=== PATIENT | male | born 1975 | race Caucasian/White ===

== ENCOUNTER → 2020-10-24 | Outpatient (CLI) | payer BC ==
[2020-10-24 19:14] LABS: Basophils # (A) 0.05 X 10*3/uL (0.00-0.10); Basophils % (A) 0.8 %; Eosinophils # (A) 0.18 X 10*3/uL (0.04-0.35); HCT 45.5 % (39.6-50.0); HGB 15.9 g/dL (13.0-17.0); Lymphocytes # (A) 1.26 X 10*3/uL (0.90-5.00); Lymphocytes % (A) 20.9 %; MCH 33.2 pg (27.0-32.0); MCHC 34.9 g/dL (32.0-37.0); Mean Platelet Volume 10.5 fL (9.5-12.2); Monocytes # (A) 0.52 X 10*3/uL (0.20-1.00); Monocytes % (A) 8.6 %; Neutrophils # (A) 4.01 X 10*3/uL (1.80-7.70); Neutrophils % (A) 66.4 %; Platelet Count 185 X 10*3/uL (140-440); RBC 4.79 X 10*6/uL (4.40-5.60); RDW 11.9 % (11.5-14.5); WBC 6.04 X 10*3/uL (4.50-10.00)
[2020-10-24 21:03] LABS: African American GFR (CKD) 117.5 (60.0-200.0); Non-African American GFR(CKD) 101.4 (60.0-200.0)
== END | disposition home or self-care (01) ==
LOC: LABWHC1 14:36
PROVIDERS: ATTEND Dermatology MOHS-Micrographic Surgery
DX: L40.0 Psoriasis vulgaris (principal)
CPT/HCPCS: 36415; 82565; 84450; 84460; 85025; 86480

== ENCOUNTER → 2020-10-31 | Outpatient (CLI) | payer BC ==
--- NOTE | 2020-10-31 14:08 | XR ---
EXAMINATION TYPE: XR chest 2V DATE OF EXAM: 10/31/2020 COMPARISON: NONE HISTORY: False positive TB skin test TECHNIQUE: Frontal and lateral views of the chest are obtained. FINDINGS: Heart size is within normal limits. No focal consolidation, pneumothorax or pleural effusi on. Minimal linear atelectasis or scarring at the left suprahilar region. Cervical spine hardware. Os seous structures are unremarkable. IMPRESSION: 1. No acute pulmonary disease.
[2020-10-31 14:59] LABS: ALT 45 U/L (4-49); AST 51 U/L (17-59)
== END | disposition home or self-care (01) ==
LOC: RADXRMAIN 13:20
PROVIDERS: ATTEND Nurse Practitioner Family
DX: L40.0 Psoriasis vulgaris (principal)
CPT/HCPCS: 71046; 84450; 84460; 86480

== ENCOUNTER 2022-09-02 22:07 | Emergency (ER) | payer BC, OTHER ==
[2022-09-02 22:28] VITALS: PULSE 109; RESP 16; TEMP 98
--- NOTE | 2022-09-02 23:23 | ED ---
General Adult HPI - General Chief complaint: Alcohol Stated complaint: ETOH Time Seen by Provider: 09/02/22 22:08 Source: patient Mode of arrival: EMS Limitations: no limitations - History of Present Illness Initial comments: This is a 47-year-old male with no past medical history presents emergency department via EMS and police for EtOH intoxication. It was reported that the patient was found at a bar when his did come to pick, and was arrested for a DUI. At that time the patient reportedly stumbled according to police so they brought him into the emergency department for further evaluation. On arrival, the patient was able to answer all questions appropriately however he was intermittently argumentative. The patient however denied any acute pain or trauma. The patient was resting in bed without any distress. - Related Data Allergies Allergy/AdvReac Type Severity Reaction Status Date / Time ibuprofen Allergy Swelling Verified 09/02/22 22:20 Review of Systems ROS Statement: Those systems with pertinent positive or pertinent negative responses have been documented in the HPI. ROS Other: All systems not noted in ROS Statement are negative. Past Medical History History of Any Multi-Drug Resistant Organisms: None Reported Past Psychological History: No Psychological Hx Reported Past Alcohol Use History: Occasional Past Drug Use History: None Reported General Exam Limitations: no limitations General appearance: alert, in no apparent distress Head exam: Present: atraumatic, normocephalic, normal inspection Eye exam: Present: normal appearance, PERRL Pupils: Present: normal accommodation ENT exam: Present: normal exam, normal oropharynx, mucous membranes moist Neck exam: Present: normal inspection, full ROM Respiratory exam: Present: normal lung sounds bilaterally Cardiovascular Exam: Present: regular rate, normal rhythm, normal heart sounds GI/Abdominal exam: Present: soft, normal bowel sounds Extremities exam: Present: normal inspection, full ROM Back exam: Present: normal inspection, full ROM Neurological exam: Present: alert, oriented X3, CN II-XII intact Psychiatric exam: Present: normal affect, normal mood Skin exam: Present: warm, dry Course Vital Signs 09/02/22 22:21 Temperature 98 F Pulse Rate 109 H Respiratory 16 Rate O2 Sat by Pulse 97 Oximetry Medical Decision Making - Medical Decision Making Was pt. sent in by a medical professional or institution (, PA, [employer], urgent care, hospital, or retirement...) When possible be specific @ -No Did you speak to anyone other than the patient for history (EMS, parent, family, police, friend...)? What history was obtained from this source @ -Yes, EMS and police Did you review nursing and triage notes (agree or disagree)? Why? @ -I reviewed and agree with nursing and triage notes Were old charts reviewed (outside hosp., previous admission, EMS record, old EKG, old radiological studies, urgent care reports/EKG's, retirement records)? Report findings @ -No old charts were reviewed Differential Diagnosis (chest pain, altered mental status, abdominal pain women, abdominal pain men, vaginal bleeding, weakness, fever, dyspnea, syncope, headache, dizziness, GI bleed, back pain, seizure, CVA, palpatations, mental health)? @ -EtOH intoxication, polysubstance abuse, dehydration EKG interpreted by me (3pts min.). @ -None X-rays interpreted by me (1pt min.). @ -None done CT interpreted by me (1pt min.). @ -None done U/S interpreted by me (1pt. min.). @ -None done What testing was considered but not performed or refused? (CT, X-rays, U/S, labs)? Why? @ -Labs were considered however the patient refused all testing. What meds were considered but not given or refused? Why? @ -None Did you discuss the management of the patient with other professionals (professionals i.e. , PA, [employer], lab, RT, psych nurse, social media manager, skull splitter, teacher, mortgage loan officer originator, corrections caseworker)? Give summary @ -No Was smoking cessation discussed for >3mins.? @ -Yes Was critical care preformed (if so, how long)? @ -No Were there social determinants of health that impacted care today? How? (H omelessness, low income, unemployed, alcoholism, drug addiction, transportation, low edu. Level, literacy, decrease access to med. care, [facility], rehab)? @ -No Was there de-escalation of care discussed even if they declined (Discuss DNR or withdrawal of care, Hospice)? DNR status @ -No What co-morbidities impacted this encounter? (DM, HTN, Smoking, COPD, CAD, Cancer, CVA, ARF, Chemo, Hep., AIDS, mental health diagnosis, sleep apnea, morbid obesity)? @ -None Was patient admitted / discharged? Hospital course, mention meds given and route, prescriptions, significant lab abnormalities, going to OR and other pertinent info. @ -The patient was seen and evaluated in emergency department. Physical exam, the patient was resting in bed without any acute complaints. The patient was reportedly intoxicated from police however was able to answer all questions appropriately. The patient did start to argue with me at first however was able to be called down. The patient did not receive any laboratory workup as he did refuse all laboratory workup. The patient was not significantly intoxicated. The patient was not in police custody. The patient was able to in weight throughout the emergency department without any acute assistance or any imbalance. The patient was able to answer all questions appropriately and was clinically sober. The patient was discharged home in stable condition. Undiagnosed new problem with uncertain prognosis? @ -No Drug Therapy requiring intensive monitoring for toxicity (Heparin, Nitro, Insulin, Cardizem)? @ -No Were any procedures done? @ -No Diagnosis/symptom? @ -EtOH intoxication Acute, or Chronic, or Acute on Chronic? @ -Acute Uncomplicated (without systemic symptoms) or Complicated (systemic symptoms)? @ -Uncomplicated Side effects of treatment? @ -No Exacerbation, Progression, or Severe Exacerbation? @ -No Poses a threat to life or bodily function? How? (Chest pain, [place], [place], pneumonia, PE, COPD, DKA, ARF, appy, cholecystitis, CVA, Diverticulitis, Homicidal, Suicidal, threat to staff... and all critical care pts) @ -No Disposition Clinical Impression: Alcoholic intoxication Disposition: HOME SELF-CARE Condition: Stable Instructions (If sedation given, give patient instructions): Alcohol Intoxication (ED) Is patient prescribed a controlled substance at d/c from ED?: No Referrals: None,Stated [Primary Care Provider] - 1-2 days Time of Disposition: 23:15
== END 2022-09-02 23:28 | disposition home or self-care (01) ==
LOC: EC 22:07
DX: F10.129 Alcohol abuse with intoxication, unspecified (principal); Z88.6 Allergy status to analgesic agent
CPT/HCPCS: 99284

== ENCOUNTER → 2022-09-06 | Outpatient (CLI) | payer BC ==
--- NOTE | 2022-09-06 11:23 | CT ---
EXAMINATION TYPE: CT brain wo con CT DLP: 1108.4 mGycm, Automated exposure control for dose reduction was used. DATE OF EXAM: 09/06/2022 11:17 AM COMPARISON: None. CLINICAL INDICATION:Male, 47 years old with history of R26.89, fell hitting right side of face/head TECHNIQUE: Brain: Multiple axial CT images of the brain were obtained without IV contrast. Coronal and sagittal reformats reviewed. FINDINGS: Brain: Extra-axial spaces: No abnormal extra-axial fluid collections. Ventricular system: Within normal limits Cerebral parenchyma: No acute intraparenchymal hemorrhage or mass effect. The mcmillan-white junction is well differentiated. Cerebellum: Unremarkable. Mass effect: No evidence of midline shift. Intracranial vasculature: unremarkable Soft tissues: Normal. Calvarium/osseous structures: No depressed skull fracture. Paranasal sinuses and mastoid air cells: Clear Visualized orbits: Orbital contents are intact. IMPRESSION: No acute intracranial process.
== END | disposition home or self-care (01) ==
LOC: RADCTMAIN 10:56
PROVIDERS: ATTEND Family Medicine
DX: R26.89 Other abnormalities of gait and mobility (principal)
CPT/HCPCS: 70450

== ENCOUNTER → 2022-09-14 | Outpatient (CLI) | payer BC ==
[2022-09-14 19:36] LABS: Hepatitis A Antibody IgM Nonreactive (Nonreactive); Hepatitis B Core IgM Nonreactive (Nonreactive); Hepatitis B Surface Antigen Nonreactive (Nonreactive); Hepatitis C IgG Antibody Nonreactive (Nonreactive)
[2022-09-14 19:48] LABS: Albumin 4.6 g/dL (3.8-4.9); Albumin/Globulin Ratio 1.44 (1.60-3.17); Bilirubin, Conjugated 0.48 mg/dL (0.20-0.40); Bilirubin,Unconjugated 1.12 mg/dL (0.20-1.00); Globulin 3.2 g/dL (1.6-3.3); Total Bilirubin 1.6 mg/dL (0.30-1.20); Total Protein 7.8 g/dL (6.2-8.2)
== END | disposition home or self-care (01) ==
LOC: LABWHC1 11:44
PROVIDERS: ATTEND Family Medicine
DX: B17.9 Acute viral hepatitis, unspecified (principal); R26.89 Other abnormalities of gait and mobility; R20.2 Paresthesia of skin
CPT/HCPCS: 36415; 80074; 80076; 82140; 82607; 86618; 86780

== ENCOUNTER → 2022-10-09 | Outpatient (CLI) | payer BC ==
[2022-10-09 16:10] LABS: Protein, Total 7.2 g/dL (6.2-8.2)
[2022-10-09 16:22] LABS: African American GFR (CKD) 121.6 (60.0-200.0); Albumin 4.6 g/dL (3.8-4.9); Albumin/Globulin Ratio 1.48 (1.60-3.17); Anion Gap 11.7 mmol/L (10.00-18.00); BUN/Creat Ratio 8.75 Ratio (12.00-20.00); Calcium 9.2 mg/dL (8.7-10.3); Carbon Dioxide 27.3 mmol/L (20.0-27.5); Globulin 3.1 g/dL (1.6-3.3); Non-African American GFR(CKD) 104.9 (60.0-200.0); Potassium 4.1 mmol/L (3.5-5.5); Total Bilirubin 2.7 mg/dL (0.30-1.20); Total Protein 7.7 g/dL (6.2-8.2)
[2022-10-09 16:59] LABS: Basophils # (A) 0.02 X 10*3/uL (0.00-0.10); Basophils % (A) 0.4 %; Eosinophils # (A) 0.17 X 10*3/uL (0.04-0.35); Eosinophils % (A) 3.8 %; HCT 40.4 % (39.6-50.0); HGB 14.4 g/dL (13.0-17.0); Immature Grans, Automated 0.2 %; Immature Platelet Fraction 6.2 % (1.1-6.1); Lymphocytes # (A) 0.94 X 10*3/uL (0.90-5.00); Lymphocytes % (A) 20.8 %; MCH 34.2 pg (27.0-32.0); MCHC 35.6 g/dL (32.0-37.0); Monocytes # (A) 0.43 X 10*3/uL (0.20-1.00); Monocytes % (A) 9.5 %; NRBC Per 100 WBC 0 /100 WBCS (0.0-0.0); Neutrophils # (A) 2.94 X 10*3/uL (1.80-7.70); Neutrophils % (A) 65.3 %; Platelet Count 77 X 10*3/uL (140-440); RBC 4.21 X 10*6/uL (4.40-5.60); RBC Morphology NORMAL; RDW 12.5 % (11.5-14.5); WBC 4.51 X 10*3/uL (4.50-10.00)
[2022-10-10 18:03] LABS: Albumin 4.16 g/dL (3.80-4.90); Gamma Globulin 1.45 g/dL (0.70-1.50)
== END | disposition home or self-care (01) ==
LOC: LABWHC1 12:47
PROVIDERS: ATTEND Nurse Practitioner Family
DX: K70.10 Alcoholic hepatitis without ascites (principal)
CPT/HCPCS: 36415; 80053; 82140; 83516; 84165; 85025; 86038

== ENCOUNTER → 2022-10-09 | Outpatient (CLI) | payer BC ==
--- NOTE | 2022-10-10 09:44 | CA ---
Transthoracic Echo Report Name: Erik Art Age: 47 Gender: M : 1975 Exam Date: 10/09/2022 12:03 Exam Location: [place] [facility] Ht (in): 72 Wt (lb): 200 Ordering Physician: Isai Maradiaga DO Attending/Referring Phys: Director Physical Jass García RDCS Procedure CPT: Indications: R01.1 Cardiac Hx: HTN; Murmur Technical Quality: Fair Contrast 1: Total Dose (mL): Contrast 2: Total Dose (mL): MEASUREMENTS (Male / Female) Normal Values 2D ECHO LV Diastolic Diameter PLAX 4.5 cm 4.2 - 5.9 / 3.9 - 5.3 cm LV Systolic Diameter PLAX 3.3 cm LV Fractional Shortening PLAX 26.0 % IVS Diastolic Thickness 1.6 cm 0.6 - 1.0 / 0.6 - 0.9 cm IVS Systolic Thickness 2.0 cm LVPW Diastolic Thickness 1.3 cm 0.6 - 1.0 / 0.6 - 0.9 cm LVPW Systolic Thickness 1.7 cm LV Relative Wall Thickness 0.7 RV Internal Dim ED PLAX 3.0 cm LVOT Diameter 2.1 cm Aortic Root Diameter 3.9 cm LA Systolic Diameter LX 3.3 cm 3.0 - 4.0 / 2.7 - 3.8 cm LA Ao Ratio 0.9 LV Diastolic Volume MOD BP 138.9 cm??? 67 - 155 / 56 - 104 cm??? LV Systolic Volume MOD BP 63.5 cm??? 22 - 58 / 19 - 49 cm??? LV Ejection Fraction MOD BP 54.3 % >= 55 % LV Stroke Volume MOD BP 75.5 cm??? LV Diastolic Volume MOD 4C 175.2 cm??? LV Systolic Volume MOD 4C 65.4 cm??? LV Ejection Fraction MOD 4C 62.7 % LV Stroke Volume MOD 4C 109.8 cm??? LV Diastolic Length 4C 8.6 cm LV Systolic Length 4C 7.3 cm LV Diastolic Volume MOD 2C 104.2 cm??? LV Systolic Volume MOD 2C 61.5 cm??? LV Ejection Fraction MOD 2C 41.0 % LV Stroke Volume MOD 2C 42.7 cm??? LV Diastolic Length 2C 8.0 cm LV Systolic Length 2C 7.2 cm Ascending Aorta Diameter 3.9 cm M-MODE Aortic Root Diameter MM 3.9 cm LA Systolic Diameter MM 3.9 cm LA Ao Ratio MM 1.0 AV Cusp Separation MM 1.3 cm DOPPLER AV Peak Velocity 301.2 cm/s AV Peak Gradient 36.3 mmHg AV Mean Velocity 189.4 cm/s AV Mean Gradient 18.3 mmHg AV Velocity Time Integral 63.8 cm AI Peak Velocity 299.5 cm/s AI Peak Gradient 35.9 mmHg AI Deceleration [place] 93.5 cm/s??? AI Pressure Half Time 929.0 ms LVOT Peak Velocity 118.6 cm/s LVOT Peak Gradient 5.6 mmHg LVOT Mean Velocity 87.5 cm/s LVOT Mean Gradient 3.3 mmHg LVOT Velocity Time Integral 28.6 cm LVOT Stroke Volume 99.5 cm??? LVOT Stroke Volume Index 46.7 ml/m??? AV Area Cont Eq vti 1.6 cm??? AV Area Cont Eq pk 1.4 cm??? MV Peak Velocity 87.5 cm/s MV Peak Gradient 3.1 mmHg MV Mean Velocity 53.1 cm/s MV Mean Gradient 1.3 mmHg MV Velocity Time Integral 30.1 cm MV Deceleration [place] 467.7 cm/s??? MR Peak Velocity 410.1 cm/s MR Peak Gradient 67.3 mmHg Mitral E Point Velocity 96.7 cm/s Mitral A Point Velocity 76.3 cm/s Mitral E to A Ratio 1.3 MV Deceleration Time 206.7 ms MV E' Velocity 8.9 cm/s Mitral E to MV E' Ratio 10.8 TR Peak Velocity 133.6 cm/s TR Peak Gradient 7.1 mmHg Right Ventricular Systolic Press 12.1 mmHg PV Peak Velocity 110.3 cm/s PV Peak Gradient 4.9 mmHg FINDINGS Left Ventricle Left ventricular ejection fraction is estimated at 50-55 %. Mild concentric left ventricular hypertrophy. Normal systolic function. Right Ventricle Normal right ventricular size and function. Right Atrium Normal right atrial size. Left Atrium Normal left atrial size. Mitral Valve Mitral valve thickened. Moderate mitral regurgitation. Aortic Valve Bicuspid AV cusps ? diffuse thickening (sclerosis) of the aortic valve cusps without reduced excursion. Moderate aortic stenosis with a peak gradient of 36.3 mmHg and a mean gradient of 18.3 mmHg. [id number] aortic regurgitation. Tricuspid Valve Mild tricuspid regurgitation. Pulmonic Valve Structurally normal pulmonic valve. Pericardium Normal pericardium. No pericardial effusion. Aorta Moderate aortic dilatation at the level of the sinuses of valsalva (root). Moderate aortic dilatation at the level of the sinotubular junction. Severely dilated proximal ascending aorta (tube). CONCLUSIONS Normal LV systolic function Bicuspid aortic valve. Moderate aortic stenosis and mean gradient of about 20 mmHg. [id number] aortic insufficiency Moderate aortic dilatation at the level of sinus of Valsalva Previewed by: Dr. Jose Martinez MD (Electronically Signed) Final Date: 10 October 2022 09:43
== END | disposition home or self-care (01) ==
LOC: RADECHMAIN 11:37
PROVIDERS: ATTEND Family Medicine
DX: I35.0 Nonrheumatic aortic (valve) stenosis (principal); R01.1 Cardiac murmur, unspecified
CPT/HCPCS: 93306

== ENCOUNTER → 2022-12-03 | Outpatient (CLI) | payer BC ==
[2022-12-03 17:33] LABS: Basophils # (A) 0.06 X 10*3/uL (0.00-0.10); Basophils % (A) 1.2 %; Eosinophils # (A) 0.38 X 10*3/uL (0.04-0.35); Eosinophils % (A) 7.6 %; HCT 44.1 % (39.6-50.0); HGB 14.8 d/dL (12.0-15.0); Lymphocytes # (A) 1.52 X 10*3/uL (0.90-5.00); Lymphocytes % (A) 30.6 %; MCHC 33.6 d/dL (32.0-37.0); MCV 95.2 FL (80.0-97.0); Mean Platelet Volume 11.7 FL (9.5-12.2); Monocytes # (A) 0.39 X 10*3/uL (0.20-1.00); Monocytes % (A) 7.8 %; NRBC Per 100 WBC 0 X 10*3/uL (0.00-0.01); Neutrophils % (A) 52.4 %; Platelet Count 114 X 10*3/uL (140-440); RBC 4.63 X 10*6/uL (4.40-5.60); RDW 11.6 % (11.5-14.5); WBC 4.97 X 10*3/uL (4.50-10.00)
[2022-12-04 18:17] LABS: ALT 66 U/L (10-49); AST 46 U/L (14-35); Albumin 4.4 d/dL (3.8-4.9); Albumin/Globulin Ratio 1.57 Ratio (1.60-3.17); Alkaline Phosphatase 60 U/L (41-126); BUN/Creat Ratio 10.91 Ratio (12.00-20.00); Bilirubin, Conjugated <0.20 mg/dL (0.20-0.40); Bilirubin,Unconjugated >0.40 mg/dL (0.20-1.00); Calcium 9.6 mg/dL (8.7-10.3); Carbon Dioxide 24.7 mmol/L (21.6-31.8); Chloride 100 mmol/L (96-109); Globulin 2.8 d/dL (1.6-3.3); Glucose 104 mg/dL (70-110); Potassium 3.6 mmol/L (3.5-5.5); Sodium 142 mmol/L (135-145); Total Bilirubin 0.6 mg/dL (0.3-1.2); Total Protein 7.2 d/dL (6.2-8.2)
== END | disposition home or self-care (01) ==
LOC: LABWHC1 08:55
PROVIDERS: ATTEND Nurse Practitioner Family
DX: K74.60 Unspecified cirrhosis of liver (principal)
CPT/HCPCS: 36415; 80053; 82248; 85025

== ENCOUNTER → 2023-02-21 | Outpatient (CLI) | payer BC ==
--- NOTE | 2023-02-21 12:59 | US ---
EXAMINATION TYPE: US liver DATE OF EXAM: 02/21/2023 COMPARISON: NONE CLINICAL INDICATION: Male, 47 years old with history of K74.60 cirrhosis; Cirrhosis. TECHNIQUE: Multiple sonographic images of the right upper quadrant are obtained. FINDINGS: EXAM MEASUREMENTS: Liver Length: 16.5 cm Gallbladder Wall: 0.3 cm CBD: Obscured Right Kidney: 12.0 x 6.0 x 5.1 cm FAMILY PRACTICE DOCTOR NOTES: Limited due to overlying bowel gas Pancreas: Not well seen. Liver: Increased echogenicity. No focal lesion. Gallbladder: Multiple hyperechoic areas with posterior shadowing seen within the gallbladder, larg est measures 1.2 cm in largest dimension. The gallbladder is mildly hydropic up to 4.3 cm wide but wi thout any wall thickening or surrounding fluid. Evidence for sonographic Rendon's sign: No CBD: Obscured Right Kidney: No hydronephrosis or masses seen IMPRESSION: 1. Moderate hepatic steatosis. Correlate with LFTs, lipid profile, and patient risk factors. 2. Mildly hydropic gallbladder probably relating to fasting state. A few echogenic nodules along the wall of the gallbladder are present and could represent stones or gallbladder wall polyps, largest me asuring 1.2 cm. Six-month follow-up to reassess. 3. The bile duct is obscured and could not be assessed.
== END | disposition home or self-care (01) ==
LOC: RADUSWWP 06:48
PROVIDERS: ATTEND Internal Medicine Gastroenterology
DX: K74.60 Unspecified cirrhosis of liver (principal); K76.0 Fatty (change of) liver, not elsewhere classified; K82.8 Other specified diseases of gallbladder
CPT/HCPCS: 76705

== ENCOUNTER → 2023-02-25 | Outpatient (CLI) | payer BC ==
--- NOTE | 2023-02-28 11:27 | MR ---
EXAMINATION TYPE: MR brain and iac wo/w con DATE OF EXAM: 02/25/2023 5:49 PM CLINICAL INDICATION:Male, 47 years old with history of R94.121 ABNORMAL VESTIBULAR FUNCTION STUDY; PH H, Head injury 09-02-22, balance issues, dizziness COMPARISON: None TECHNIQUE: Multi planar, multi sequence imaging was performed through the brain. Specialized thin s equences were obtained through the internal auditory canals. Pre-and post gadolinium sequences were obtained. MR contrast: IV Contrast: 9 cc Gadavist FINDINGS: The mcmillan-white junctions, ventricular system, and cisterns appear unremarkable. Midline structures s how no abnormality. Diffusion-weighted imaging shows no evidence of restricted diffusion. The suscept ibility weighted images do not reveal any evidence for micro-hemorrhage. The bone marrow signal is within normal limits. Paranasal sinuses and mastoid air cells: Mild scattered paranasal sinus disease. Visualized orbits: Orbital contents are intact. After administration of gadolinium, no abnormal enhancement is seen. The internal auditory canal sequences demonstrate no significant irregularity. The 7th cranial nerve s, 8 cranial nerves, and cerebellar pontine angles appear unremarkable. After the administration laury olinium, no abnormal enhancement is seen within the internal auditory canals. Vascular loop: Right Type II: entering, but not extending >50% of the length of the IAC IMPRESSION: 1. No evidence of intracranial mass nor acute/subacute CVA. 2. No evidence of internal auditory canal abnormality. 3. Vascular loop: Right Type II: entering, but not extending >50% of the length of the IAC
== END | disposition home or self-care (01) ==
LOC: RADMRIMAIN 16:15
PROVIDERS: ATTEND Otolaryngology
DX: R94.121 Abnormal vestibular function study (principal)
CPT/HCPCS: 70553; A9585

== ENCOUNTER → 2023-03-05 | Outpatient (CLI) | payer BC ==
[2023-03-05 20:43] LABS: Basophils # (A) 0.05 X 10*3/uL (0.00-0.10); Basophils % (A) 0.6 %; Eosinophils % (A) 2.6 %; HGB 14.9 d/dL (13.0-17.0); Lymphocytes # (A) 2.46 X 10*3/uL (0.90-5.00); Lymphocytes % (A) 31.8 %; MCH 31.5 pg (27.0-32.0); MCHC 34.7 d/dL (32.0-37.0); MCV 90.9 FL (80.0-97.0); Mean Platelet Volume 11.1 FL (9.5-12.2); Monocytes # (A) 0.51 X 10*3/uL (0.20-1.00); Monocytes % (A) 6.6 %; NRBC Per 100 WBC 0 X 10*3/uL (0.00-0.01); Neutrophils % (A) 58.1 %; Platelet Count 130 X 10*3/uL (140-440); RBC 4.73 X 10*6/uL (4.40-5.60); RDW 12.8 % (11.5-14.5); WBC 7.74 X 10*3/uL (4.50-10.00)
[2023-03-05 20:50] LABS: ALT 33 U/L (10-49); AST 32 U/L (14-35); Albumin 4.7 d/dL (3.8-4.9); Albumin/Globulin Ratio 1.74 Ratio (1.60-3.17); Alkaline Phosphatase 59 U/L (41-126); Blood Urea Nitrogen 10.5 mg/dL (9.0-27.0); Calcium 10.3 mg/dL (8.7-10.3); Carbon Dioxide 28.4 mmol/L (21.6-31.8); Chloride 100 mmol/L (96-109); Globulin 2.7 d/dL (1.6-3.3); Glucose 94 mg/dL (70-110); Potassium 4.5 mmol/L (3.5-5.5); Sodium 139 mmol/L (135-145); Total Bilirubin 1.5 mg/dL (0.3-1.2); Total Protein 7.4 d/dL (6.2-8.2)
== END | disposition home or self-care (01) ==
LOC: LABWHC1 15:32
PROVIDERS: ATTEND Family Medicine
DX: K74.60 Unspecified cirrhosis of liver (principal)
CPT/HCPCS: 36415; 80053; 85025

== ENCOUNTER → 2023-04-08 | Outpatient (CLI) | payer BC | LOC: 3 N SLEEP 06:31 | PROVIDERS: ATTEND Internal Medicine | DX: G47.33 Obstructive sleep apnea (adult) (pediatric) (principal); Z88.6 Allergy status to analgesic agent | CPT/HCPCS: 95810 ==

== ENCOUNTER → 2023-09-06 | Outpatient (CLI) | payer BC ==
[2023-09-06 17:05] LABS: Basophils # (A) 0.03 X 10*3/uL (0.00-0.10); Basophils % (A) 0.6 %; Eosinophils # (A) 0.23 X 10*3/uL (0.04-0.35); Eosinophils % (A) 4.8 %; HCT 43.4 % (39.6-50.0); HGB 14.7 g/dL (13.0-17.0); Lymphocytes % (A) 29.2 %; MCH 31.4 pg (27.0-32.0); MCHC 33.9 g/dL (32.0-37.0); MCV 92.7 FL (80.0-97.0); Mean Platelet Volume 10.8 FL (9.5-12.2); Monocytes # (A) 0.23 X 10*3/uL (0.20-1.00); Monocytes % (A) 4.8 %; NRBC Per 100 WBC 0 X 10*3/uL (0.00-0.01); Neutrophils % (A) 60.4 %; Platelet Count 120 X 10*3/uL (140-440); RBC 4.68 X 10*6/uL (4.40-5.60); RDW 12.3 % (11.5-14.5)
[2023-09-06 17:31] LABS: ALT 27 U/L (10-49); AST 26 U/L (14-35); Albumin 4.4 g/dL (3.8-4.9); Albumin/Globulin Ratio 1.76 Ratio (1.60-3.17); Alkaline Phosphatase 63 U/L (41-126); BUN/Creat Ratio 6.55 Ratio (12.00-20.00); Blood Urea Nitrogen 7.2 mg/dL (9.0-27.0); Calcium 9.8 mg/dL (8.7-10.3); Carbon Dioxide 26.5 mmol/L (21.6-31.8); Chloride 106 mmol/L (96-109); Globulin 2.5 g/dL (1.6-3.3); Glucose 98 mg/dL (70-110); Potassium 4.6 mmol/L (3.5-5.5); Sodium 142 mmol/L (135-145); Total Bilirubin 1.5 mg/dL (0.3-1.2); Total Protein 6.9 g/dL (6.2-8.2)
== END | disposition home or self-care (01) ==
LOC: LABWHC1 10:41
PROVIDERS: ATTEND Internal Medicine Gastroenterology
DX: K74.60 Unspecified cirrhosis of liver (principal)
CPT/HCPCS: 36415; 80053; 82105; 85025

== ENCOUNTER → 2023-10-16 | Outpatient (CLI) | payer BC ==
--- NOTE | 2023-10-16 09:56 | US ---
EXAMINATION TYPE: US liver DATE OF EXAM: 10/16/2023 COMPARISON: NONE CLINICAL INDICATION: Male, 48 years old with history of K74.60 UNSPECIFIED CIRRHOSIS OF LIVER; known cirrhosis, no symptoms TECHNIQUE: Multiple sonographic images of the right upper quadrant are obtained. FINDINGS: EXAM MEASUREMENTS: Liver Length: 16.7 cm Gallbladder Wall: 0.2 cm CBD: 0.6 cm Right Kidney: 10.8 x 4.4 x 5.3 cm Pancreas: wnl Liver: difficult to penetrate , no suspicious observations. No dilated ducts or cystic structures. Gallbladder: multiple stone seen near neck Evidence for sonographic Rendon's sign: no CBD: wnl Right Kidney: wnl IMPRESSION: 1. Hepatocellular disease. No suspicious observations. 2. Cholelithiasis.
== END | disposition home or self-care (01) ==
LOC: RADUSWWP 08:59
PROVIDERS: ATTEND Internal Medicine Gastroenterology
DX: K80.20 Calculus of gallbladder without cholecystitis without obstruction (principal); K74.60 Unspecified cirrhosis of liver; K76.9 Liver disease, unspecified
CPT/HCPCS: 76705

== ENCOUNTER → 2023-11-19 | Outpatient (CLI) | payer BC ==
--- NOTE | 2023-11-19 17:21 | CA ---
Transthoracic Echo Report Name: Erik Art Age: 48 Gender: M : 1975 Exam Date: 11/19/2023 14:30 Exam Location: [place] [facility] Ht (in): 72 Wt (lb): 189 Ordering Physician: Isai Maradiaga DO Attending/Referring Phys: Isai Maradiaga DO Set Up Worker Michelel William, RDPATY Procedure CPT: Indications: I35.0 Nonrheumatic aortic (valve) stenosis Cardiac Hx: Technical Quality: Good Contrast 1: Total Dose (mL): Contrast 2: Total Dose (mL): MEASUREMENTS (Male / Female) Normal Values 2D ECHO LV Diastolic Diameter PLAX 5.2 cm 4.2 - 5.9 / 3.9 - 5.3 cm LV Systolic Diameter PLAX 3.1 cm IVS Diastolic Thickness 1.3 cm 0.6 - 1.0 / 0.6 - 0.9 cm LVPW Diastolic Thickness 1.3 cm 0.6 - 1.0 / 0.6 - 0.9 cm LV Relative Wall Thickness 0.5 RV Internal Dim ED PLAX 3.7 cm LVOT Diameter 2.1 cm LA Systolic Diameter LX 3.9 cm 3.0 - 4.0 / 2.7 - 3.8 cm LV Diastolic Volume MOD BP 86.2 cm??? 67 - 155 / 56 - 104 cm??? LV Systolic Volume MOD BP 27.9 cm??? 22 - 58 / 19 - 49 cm??? LV Ejection Fraction MOD BP 67.7 % >= 55 % LV Diastolic Volume MOD 4C 86.7 cm??? LV Systolic Volume MOD 4C 28.5 cm??? LV Ejection Fraction MOD 4C 67.2 % LV Diastolic Length 4C 8.4 cm LV Systolic Length 4C 7.0 cm LV Diastolic Volume MOD 2C 81.2 cm??? LV Systolic Volume MOD 2C 24.2 cm??? LV Ejection Fraction MOD 2C 70.2 % LV Diastolic Length 2C 7.9 cm LV Systolic Length 2C 6.2 cm Aorta at Sinuses Diameter 4.1 cm M-MODE Aortic Root Diameter MM 3.6 cm LA Systolic Diameter MM 2.5 cm LA Ao Ratio MM 0.7 AV Cusp Separation MM 1.3 cm DOPPLER AV Peak Velocity 348.7 cm/s AV Peak Gradient 48.6 mmHg AV Mean Velocity 251.6 cm/s AV Mean Gradient 28.8 mmHg AV Velocity Time Integral 85.1 cm AI Peak Velocity 253.5 cm/s AI Peak Gradient 25.7 mmHg AI Pressure Half Time 1160.1 ms Mitral E Point Velocity 71.0 cm/s Mitral A Point Velocity 63.7 cm/s Mitral E to A Ratio 1.1 MV Deceleration Time 343.5 ms MV E' Velocity 8.4 cm/s Mitral E to MV E' Ratio 8.4 TR Peak Velocity 222.8 cm/s TR Peak Gradient 19.9 mmHg FINDINGS Left Ventricle Left ventricular ejection fraction is estimated at 55-60%. Mildly increased septal wall thickness. Normal left ventricular wall motion. Left ventricular cavity size normal. Right Ventricle Normal right ventricular size and function. Right ventricular systolic pressure within normal limits. Right Atrium Normal right atrial size. Left Atrium Normal left atrial size. Mitral Valve Structurally normal mitral valve. Trace mitral regurgitation. Aortic Valve Moderate aortic stenosis with a peak gradient of 48 mmHg and a mean gradient of 28mmHg. Mild aortic regurgitation. Bicuspid aortic valve. Tricuspid Valve Structurally normal tricuspid valve. Trace tricuspid regurgitation. Pulmonic Valve Structurally normal pulmonic valve. Trace pulmonic regurgitation. No pulmonic stenosis. Pericardium No pericardial or pleural effusion. Aorta Mild aortic dilatation at the level of the sinuses of valsalva 4.1cm. CONCLUSIONS Normal LV systolic function Bicuspid aortic valve with moderate aortic stenosis and mild aortic regurgitation Dilated aortic root measuring 4.1 cm Previewed by: Dr. Andrea Wilhelm MD (Electronically Signed) Final Date: 19 November 2023 17:20
== END | disposition home or self-care (01) ==
LOC: RADECHMAIN 14:04
PROVIDERS: ATTEND Family Medicine
DX: I35.0 Nonrheumatic aortic (valve) stenosis (principal); I77.810 Thoracic aortic ectasia
CPT/HCPCS: 93306

== ENCOUNTER → 2024-10-02 | Outpatient (CLI) | payer OTHER ==
--- NOTE | 2024-10-02 14:06 | MR ---
EXAMINATION TYPE: MR tspine/lspine wo con DATE OF EXAM: 10/02/2024 9:07 AM COMPARISON: Chest radiograph 10/31/2020 CLINICAL INDICATION: Male, 49 years old with history of M54.5 pain, Mid and lower back pain, RLE radi culopathy, hx of injury. TECHNIQUE: Multiplanar, multisequence imaging of the thoracolumbar spine is performed without IV cont rast. FINDINGS: Alignment: The lumbar vertebral bodies have preserved heights and alignment. Cord: The conus medullaris and the distal spinal cord appear unremarkable with regards to their signa l intensity and morphology. Bones/Discs: Postsurgical changes from anterior cervical fusion of the cervical spine. Multilevel sma ll Schmorl's nodes involving the thoracolumbar spine. Bone signal is within normal limits in the thor acolumbar spine. The intervertebral disc signal is maintained within the thoracic spine disks. Mild multilevel disc desiccation of the lumbar spine. No significant disc height loss. No abnormal STIR si gnal the thoracolumbar spine. T5-T6 central disc protrusion with mild effacement of the anterior thecal sac and abutment of the ant erior spinal cord with some mild mass effect. No abnormal cord signal. There is significant preserved posterior thecal space. T6-T7 right paracentral disc protrusion with mild effacement of the anterior thecal sac and mass effe ct upon the anterior spinal cord. No cord signal abnormality at this level. There is significant pres erved posterior thecal space. No other significant central canal stenosis of the thoracic spine. No significant neural foraminal stenosis of the entire thoracic spine. L1-L2: Tiny right paracentral disc protrusion without significant effacement of the anterior thecal s ac. No significant central canal stenosis. No neural foraminal stenosis. L2-L3: No significant disc pathology. Spinal canal is patent. Bilateral facet arthropathy. The neural foramen are patent. L3-L4: No significant disc pathology. Spinal canal is patent. Bilateral facet arthropathy. The neural foramen are patent. L4-L5: Broad-based disc bulge with ligamentum flavum buckling resulting in minimal central canal sten osis. There is close proximity of the disc to the bilateral exiting L5 nerve roots. Bilateral facet a rthropathy. Mild bilateral neural foraminal stenosis. L5-S1: No significant disc pathology. Spinal canal is patent. The neural foramen are patent. Other findings: None. IMPRESSION: Mild multilevel degenerative disc disease and facet arthropathy of the thoracolumbar spine as describ ed above. Disc protrusions at T5-T6 and T6-T7 results in mild effacement of the anterior thecal sac w ith mass effect upon the spinal cord. No cord signal change. [facility], , 10/02/2024 2:03 PM
== END | disposition home or self-care (01) ==
LOC: RADMRIMAIN 07:27
PROVIDERS: ATTEND Family Medicine
DX: M51.35 Other intervertebral disc degeneration, thoracolumbar region (principal); M51.24 Other intervertebral disc displacement, thoracic region; M47.815 Spondylosis without myelopathy or radiculopathy, thoracolumbar region
CPT/HCPCS: 72146; 72148